=== PATIENT | female | born 1935 | race Caucasian/White ===

== ENCOUNTER 2020-09-22 07:54 | Outpatient (REF) | payer MEDICARE, OTHER, SELFPAY ==
[2020-09-22 11:15] LABS: MANUAL DIFF FLAG NO
[2020-09-22 11:27] LABS: Basophils Percent Auto 1.1 % (0-2); Eosinophils Absolute Auto 0.1 X10*3/uL (0.0-0.4); Eosinophils Percent Auto 3.7 % (0-4); Hematocrit 33.3 % (37-47); Hemoglobin 11.6 g/dl (12.0-16.0); Lymphocytes Absolute Auto 1.1 X10*3/uL (1.2-4.9); Lymphocytes Percent Auto 30.4 % (20-40); Mean Corpuscular HGB Conc 34.8 g/dl (31.0-35.0); Mean Corpuscular Hemoglobin 33.6 pg (27.0-33.0); Mean Corpuscular Volume 96.5 fL (80-98); Mean Platelet Volume 10.3 fL (9.4-12.3); Monocytes Absolute Auto 0.5 X10*3/uL (0.1-1.2); Monocytes Percent Auto 12.8 % (2-11); Neutrophils Absolute Auto 1.8 X10*3/uL (2.0-8.3); Platelet Count 236 X10*3/uL (160-400); Red Blood Count 3.45 X10*6/uL (4.20-5.50); Red Cell Distribution Width 12.4 % (11.0-16.0); White Blood Count 3.5 X10*3/uL (4.8-10.8)
[2020-09-22 11:54] LABS: Anion Gap 11 (12-20); Blood Urea Nitrogen 19 mg/dL (9-16); Carbon Dioxide 29 mmol/L (22-29); Chloride 101 mmol/L (96-108); Estimated Glomerular Filt Rate > 60; Potassium 4.3 mmol/l (3.3-5.1); Sodium 137 mmol/L (135-145)
== END 2020-09-22 07:55 | disposition home or self-care (01) ==
LOC: HO.HMGCLDS 07:54
PROVIDERS: PCP Family Medicine; Visit Provider Family Medicine
DX: D64.9 Anemia, unspecified (principal); I10 Essential (primary) hypertension
CPT/HCPCS: 36415; 80051; 82565; 84520; 85025

== ENCOUNTER 2021-06-17 07:56 | Outpatient (REF) | payer MEDICARE, OTHER, SELFPAY ==
[2021-06-17 11:09] LABS: MANUAL DIFF FLAG NO
[2021-06-17 11:16] LABS: Eosinophils Absolute Auto 0.2 X10*3/uL (0.0-0.4); Eosinophils Percent Auto 5.6 % (0-4); Hematocrit 33.2 % (37-47); Hemoglobin 11.4 g/dl (12.0-16.0); Imm Gran Abs Auto 0.01 X10*3/uL (0.00-0.03); Imm Gran Pct Auto 0.3 % (0.0-0.4); Lymphocytes Absolute Auto 1.2 X10*3/uL (1.2-4.9); Lymphocytes Percent Auto 31.5 % (20-40); Mean Corpuscular HGB Conc 34.3 g/dl (31.0-35.0); Mean Corpuscular Hemoglobin 32.8 pg (27.0-33.0); Mean Corpuscular Volume 95.4 fL (80-98); Mean Platelet Volume 10.1 fL (9.4-12.3); Monocytes Absolute Auto 0.4 X10*3/uL (0.1-1.2); Monocytes Percent Auto 10.7 % (2-11); Neutrophils Percent Auto 50.9 % (45-73); Platelet Count 221 X10*3/uL (160-400); Red Blood Count 3.48 X10*6/uL (4.20-5.50); Red Cell Distribution Width 12.7 % (11.0-16.0); White Blood Count 3.9 X10*3/uL (4.8-10.8)
[2021-06-17 11:40] LABS: Anion Gap 12 (12-20); Blood Urea Nitrogen 15 mg/dL (9-16); Carbon Dioxide 24 mmol/L (22-29); Chloride 103 mmol/L (96-108); Estimated Glomerular Filt Rate > 60; Potassium 4.4 mmol/L (3.3-5.1); Sodium 135 mmol/L (135-145)
== END 2021-06-17 07:57 | disposition home or self-care (01) ==
LOC: HO.HMGCLDS 07:56
PROVIDERS: PCP Family Medicine; Visit Provider Family Medicine
DX: I10 Essential (primary) hypertension (principal); D72.819 Decreased white blood cell count, unspecified
CPT/HCPCS: 36415; 80051; 82565; 84520; 85025

== ENCOUNTER 2021-11-06 08:30 | Outpatient (REF) | payer MEDICARE, OTHER, SELFPAY ==
[2021-11-06 10:19] LABS: MANUAL DIFF FLAG NO
[2021-11-06 10:31] LABS: Basophils Percent Auto 0.8 % (0-2); Eosinophils Absolute Auto 0.2 X10*3/uL (0.0-0.4); Eosinophils Percent Auto 4.1 % (0-4); Hematocrit 33.1 % (37.0-47.0); Hemoglobin 11.4 g/dl (12.0-16.0); Lymphocytes Absolute Auto 1.2 X10*3/uL (1.2-4.9); Lymphocytes Percent Auto 29.7 % (20-40); Mean Corpuscular HGB Conc 34.4 g/dl (31.0-35.0); Mean Corpuscular Hemoglobin 32.9 pg (27.0-33.0); Mean Corpuscular Volume 95.7 fL (80.0-98.0); Mean Platelet Volume 10.1 fL (9.4-12.3); Monocytes Absolute Auto 0.5 X10*3/uL (0.1-1.2); Monocytes Percent Auto 13.4 % (2-11); Platelet Count 231 X10*3/uL (160-400); Red Blood Count 3.46 X10*6/uL (4.20-5.50); Red Cell Distribution Width 12.4 % (11.0-16.0); White Blood Count 3.9 X10*3/uL (4.8-10.8)
[2021-11-06 10:40] LABS: Anion Gap 11 (12-20); Blood Urea Nitrogen 16 mg/dL (9-16); Carbon Dioxide 28 mmol/L (22-29); Chloride 101 mmol/L (96-108); Estimated Glomerular Filt Rate > 60; Potassium 4.2 mmol/L (3.3-5.1); Sodium 136 mmol/L (135-145)
== END 2021-11-06 08:31 | disposition home or self-care (01) ==
LOC: HO.10HDL 08:30
PROVIDERS: Visit Provider Family Medicine
DX: I10 Essential (primary) hypertension (principal); D64.9 Anemia, unspecified
CPT/HCPCS: 36415; 80051; 82565; 84520; 85025

== ENCOUNTER 2022-05-27 08:07 | Outpatient (REF) | payer MEDICARE, OTHER, SELFPAY ==
[2022-05-27 10:57] LABS: MANUAL DIFF FLAG NO
[2022-05-27 11:12] LABS: Eosinophils Absolute Auto 0.2 X10*3/uL (0.0-0.4); Eosinophils Percent Auto 4.6 % (0-4); Hematocrit 32.8 % (37.0-47.0); Hemoglobin 11.4 g/dl (12.0-16.0); Imm Gran Abs Auto 0.02 X10*3/uL (0.00-0.03); Imm Gran Pct Auto 0.5 % (0.0-0.4); Lymphocytes Absolute Auto 1.3 X10*3/uL (1.2-4.9); Lymphocytes Percent Auto 32.9 % (20-40); Mean Corpuscular HGB Conc 34.8 g/dl (31.0-35.0); Mean Corpuscular Hemoglobin 33.2 pg (27.0-33.0); Mean Corpuscular Volume 95.6 fL (80.0-98.0); Monocytes Absolute Auto 0.5 X10*3/uL (0.1-1.2); Monocytes Percent Auto 12.2 % (2-11); Neutrophils Absolute Auto 1.9 x10*3/uL (2.0-8.3); Neutrophils Percent Auto 48.8 % (45-73); Platelet Count 228 X10*3/uL (160-400); Red Blood Count 3.43 X10*6/uL (4.20-5.50); Red Cell Distribution Width 12.7 % (11.0-16.0); White Blood Count 3.9 X10*3/uL (4.8-10.8)
[2022-05-27 11:15] LABS: Anion Gap 14 (12-20); Blood Urea Nitrogen 18 mg/dL (9-16); Carbon Dioxide 27 mmol/L (22-29); Chloride 101 mmol/L (96-108); Estimated Glomerular Filt Rate 53; Sodium 138 mmol/L (135-145)
== END 2022-05-27 08:08 | disposition home or self-care (01) ==
LOC: HO.10HDL 08:07
PROVIDERS: Visit Provider Family Medicine
DX: I10 Essential (primary) hypertension (principal); D64.9 Anemia, unspecified
CPT/HCPCS: 36415; 80051; 82565; 84520; 85025

== ENCOUNTER 2022-12-10 08:16 | Outpatient (REF) | payer MEDICARE, OTHER, SELFPAY ==
[2022-12-10 12:41] LABS: Anion Gap 12 (12-20); Blood Urea Nitrogen 17 mg/dL (9-16); Carbon Dioxide 27 mmol/L (22-29); Chloride 101 mmol/L (96-108); Estimated Glomerular Filt Rate > 60; Potassium 4.3 mmol/L (3.3-5.1); Sodium 136 mmol/L (135-145)
== END 2022-12-10 08:17 | disposition home or self-care (01) ==
LOC: HO.HMGCLDS 08:16
PROVIDERS: Visit Provider Family Medicine
DX: I10 Essential (primary) hypertension (principal)
CPT/HCPCS: 36415; 80051; 82565; 84520

== ENCOUNTER 2023-08-25 09:14 | Outpatient (REF) | payer MEDICARE, OTHER, SELFPAY ==
[2023-08-25 11:07] LABS: MANUAL DIFF FLAG NO
[2023-08-25 11:10] LABS: Basophils Percent Auto 0.9 % (0-2); Eosinophils Absolute Auto 0.1 X10*3/uL (0.0-0.4); Eosinophils Percent Auto 1.6 % (0-4); Hematocrit 33.3 % (37.0-47.0); Hemoglobin 11.7 g/dl (12.0-16.0); Imm Gran Abs Auto 0.01 X10*3/uL (0.00-0.03); Imm Gran Pct Auto 0.2 % (0.0-0.4); Lymphocytes Absolute Auto 1.2 X10*3/uL (1.2-4.9); Lymphocytes Percent Auto 28.1 % (20-40); Mean Corpuscular HGB Conc 35.1 g/dl (31.0-35.0); Mean Corpuscular Hemoglobin 33.4 pg (27.0-33.0); Mean Corpuscular Volume 95.1 fL (80.0-98.0); Mean Platelet Volume 10.3 fL (9.4-12.3); Monocytes Absolute Auto 0.5 X10*3/uL (0.1-1.2); Monocytes Percent Auto 11.2 % (2-11); Neutrophils Absolute Auto 2.5 x10*3/uL (2.0-8.3); Platelet Count 252 X10*3/uL (160-400); Red Cell Distribution Width 12.3 % (11.0-16.0); White Blood Count 4.3 X10*3/uL (4.8-10.8)
[2023-08-25 11:33] LABS: Anion Gap 11 (12-20); Blood Urea Nitrogen 19 mg/dL (9-16); Carbon Dioxide 28 mmol/L (22-29); Chloride 99 mmol/L (96-108); Estimated Glomerular Filt Rate 57; Sodium 134 mmol/L (135-145)
== END 2023-08-25 09:15 | disposition home or self-care (01) ==
LOC: HO.HMGCLDS 09:14
PROVIDERS: PCP Family Medicine; Visit Provider Family Medicine
DX: I10 Essential (primary) hypertension (principal); D64.9 Anemia, unspecified
CPT/HCPCS: 36415; 80051; 82565; 84520; 85025

== ENCOUNTER 2023-12-06 12:48 | Outpatient (REF) | payer MEDICARE, OTHER, SELFPAY ==
--- NOTE | ~2023-12-06 | MM_ITS ---
EXAMINATION: BONE DENSITOMETRY CLINICAL INDICATION: History of osteoporosis. COMPARISON: This is the patient's baseline examination. TECHNIQUE: Using a [employer] DXA System (software version: 13.1) manufactured by [employer], dual-energy x-ray absorptiometry was performed of the lumbar spine and left hip. The images are of good technical quality. Summary results are attached. FINDINGS: LEFT FEMUR, NECK: BMD 0.629 g/cm2, Z-score -0.4, T-score -2.9, osteoporosis. LEFT FEMUR, TOTAL: BMD 0.613 g/cm2, Z-score -0.6, T-score -3.1, osteoporosis. AP SPINE L1-L4: BMD 0.850 g/cm2, Z-score -0.6, T-score -2.7, osteoporosis. IDENTIFIED RISK FACTORS: Menopause, dementia. HISTORY OF FRACTURE: None listed. MEDICATIONS: Vitamin D. MM/XR DEXA axial skeleton IMPRESSION: 1. DIAGNOSIS: Osteoporosis based on the lowest T-score value of -3.1 in the total femur applying World Health Organization criteria. 2. 10-YEAR FRACTURE RISK PREDICTION, FRAX: According to the guidelines, FRAX calculation should only be performed on patients in the osteopenia bone density category. Therefore, FRAX was not performed on this patient. 3. Treatment Recommendations: NOF guidelines recommend consideration for treatment in postmenopausal women and men age 50 and older presenting with the following: -A hip or vertebral (clinical or morphometric) fracture. -T-score less than or equal to -2.5 at the femoral neck or spine after appropriate evaluation to exclude secondary causes. -Low bone mass at the hip or spine and a 10-year fracture probability by FRAX of greater than or equal to 3% for hip fracture or greater than or equal to 20% for major osteoporotic fracture based on the [place] adapted WHO algorithm. 4. Other Recommendations: All treatment decisions require clinical judgment and consideration of individual patient factors, including patient preferences, comorbidities, previous drug use, risk factors not captured in the FRAX model (e.g. frailty, falls, vitamin D deficiency, increased bone turnover, interval significant decline in bone density) and possible under or overestimation of fracture risk by FRAX. Additional medical evaluation for secondary cause of low bone mineral density may be appropriate. FUTURE SCAN RECOMMENDATION: People with diagnosed cases of osteoporosis or at high risk for fracture should have regular bone mineral density tests. For patients eligible for Medicare, routine testing is allowed once every 2 years. The testing frequency can be increased to one year for patients who have rapidly progressing disease, those who are receiving or discontinuing medical therapy to restore bone mass, or have additional risk factors.
--- NOTE | ~2023-12-06 | US_ITS ---
EXAMINATION: US THYROID CLINICAL INFORMATION: History of osteoporosis, thyroid nodule. COMPARISON: None available. TECHNIQUE: Linear transducer richard-scale and color Doppler examination with attention to the region of the thyroid. FINDINGS: SIZE: Measurements of the thyroid lobes and nodules are given in sagittal, anteroposterior and transverse dimensions respectively. Right Thyroid Lobe: 5.7 x 1.3 x 1.8 cm, volume 6.97 mL. Parenchyma: The gland echotexture is homogeneous. Thyroid vascularity is normal. Left Thyroid Lobe: 4.6 x 1.1 x 1.8 cm, volume 4.8 mL. Parenchyma: The gland echotexture is homogeneous. Thyroid vascularity is normal. Isthmus: 0.3 cm in maximum AP dimension. No focal thyroid nodule is seen. NODES: No lymphadenopathy is seen in the tissue surrounding the thyroid gland. US/US thyroid IMPRESSION: No suspicious thyroid nodules identified. ACR TI-RADS RECOMMENDATION REFERENCE: Ultrasound-guided fine-needle aspiration, followup ultrasound, no further follow up. * TR1 (0 point) and TR2 (2 points): No FNA or follow up. * TR3 (3 points): FNA if more than or equal to 2.5 cm in maximum dimension, followup ultrasound in 1, 3 and 5 years if 1.5 to 2.4 cm in maximum dimension. * TR4 (4-6 points): FNA if more than or equal to 1.5 cm in maximum dimension, followup ultrasound in 1, 2, 3 and 5 years if 1 to 1.4 cm in maximum dimension. * TR5 (more than or equal to 7 points): FNA if more than or equal to 1 cm in maximum dimension, followup ultrasound every year for 5 years if 0.5 to 0.9 cm in maximum dimension. * TR3, TR4 or TR5 nodules that are below the size threshold for followup receive no follow up.
== END 2023-12-06 12:49 | disposition home or self-care (01) ==
LOC: HO.US 12:48
PROVIDERS: PCP Family Medicine; Visit Provider Family Medicine
DX: Z13.820 Encounter for screening for osteoporosis (principal); M81.0 Age-related osteoporosis without current pathological fracture; E04.1 Nontoxic single thyroid nodule; Z78.0 Asymptomatic menopausal state
CPT/HCPCS: 76536; 77080

== ENCOUNTER 2024-02-27 09:13 | Outpatient (REF) | payer MEDICARE, OTHER, SELFPAY ==
[2024-02-27 10:29] LABS: MANUAL DIFF FLAG NO
[2024-02-27 10:40] LABS: Basophils Percent Auto 0.8 % (0-2); Eosinophils Absolute Auto 0.3 X10*3/uL (0.0-0.4); Eosinophils Percent Auto 5.5 % (0-4); Hemoglobin 11.6 g/dl (12.0-16.0); Imm Gran Abs Auto 0.02 X10*3/uL (0.00-0.03); Imm Gran Pct Auto 0.4 % (0.0-0.4); Lymphocytes Absolute Auto 1.2 X10*3/uL (1.2-4.9); Lymphocytes Percent Auto 23.4 % (20-40); Mean Corpuscular HGB Conc 35.2 g/dl (31.0-35.0); Mean Corpuscular Hemoglobin 33.5 pg (27.0-33.0); Mean Corpuscular Volume 95.4 fL (80.0-98.0); Mean Platelet Volume 9.9 fL (9.4-12.3); Monocytes Absolute Auto 0.7 X10*3/uL (0.1-1.2); Monocytes Percent Auto 13.7 % (2-11); Neutrophils Absolute Auto 2.8 x10*3/uL (2.0-8.3); Neutrophils Percent Auto 56.2 % (45-73); Platelet Count 241 X10*3/uL (160-400); Red Blood Count 3.46 X10*6/uL (4.20-5.50); Red Cell Distribution Width 12.5 % (11.0-16.0)
[2024-02-27 11:17] LABS: Alanine Aminotransferase 23 U/L (0-31); Anion Gap 14 (12-20); Aspartate Amino Transferase 22 U/L (5-31); Blood Urea Nitrogen 18 mg/dL (9-16); Carbon Dioxide 26 mmol/L (22-29); Chloride 101 mmol/L (96-108); Estimated Glomerular Filt Rate 59; Potassium 4.1 mmol/L (3.3-5.1); Sodium 137 mmol/L (135-145)
== END 2024-02-27 09:14 | disposition home or self-care (01) ==
LOC: HO.HMGCLDS 09:13
PROVIDERS: PCP Family Medicine; Visit Provider Family Medicine
DX: I10 Essential (primary) hypertension (principal); D64.9 Anemia, unspecified; E78.00 Pure hypercholesterolemia, unspecified
CPT/HCPCS: 36415; 80051; 82550; 82565; 84450; 84460; 84520; 85025

== ENCOUNTER 2024-12-07 08:10 | Outpatient (REF) | payer MEDICARE, OTHER, SELFPAY ==
--- OUTSIDE RECORDS SUMMARY | 2024-12-07 08:23 | XMS_ITS ---
Author Organization Lalito Becerra III, MD Address [address] [place] [address] [place] [address] Care Team Providers Care Senior Insight Manager Name Role Phone Yoandy PETERSON, Todd Primary Care Provider Unavailab Lalito Simpson Unavailable [phone] Allergies Allergen (clinical drug ingredient) Drug/Non Drug Allergy documented on EMR Reaction Allergy Type Onset Date Status No Known Drug Allergy Unknown Drug Allergy Active REASON FOR VISIT History of breast cancer, Osteoporosis, Neutropenia Medications Medication SIG (Take, Route, Frequency, Duration) Notes Start Date End Date Status Vitamin D-3 5000 UNIT as directed Orally Once a day Active Centrum 1000 MG as directed Orally O nce a day Active Bisoprolol-hydroCHLOROthia zide 2.5-6.25 MG [...] Tobacco Non-User Aggressive non-smoker Vital Signs Temperature 98.0 degrees Fahrenheit 11/18/19 24 Blood pressure systolic 136 mm Hg 11/18/19 24 Blood pressure diastolic 60 mm Hg 024 Heart Rate 62 /min 11/18/2023 Height 61 in 11/18/2023 Weight 136 lbs 11/18/2023 BMI 25.69 kg/m2 11/18/2023 Encounters Encounter Location Date Provider Diagnosis Lalito Becerra III, MD [address] [place] [address] [address] [place] [address] 11/18/2023 Lalito Becerra Screening mammogram for breast cancer Z12.31 ; Essential hypertension I10 ; Neutropenia, unspecified type D70.9 ; Sinus bradycardia R00.1 ; Malignant neoplasm of lower-outer quadrant of left female breast C50.512 ; Osteoporosis M81.0 and Overweight E66.3 Assessments Encounter Date Diagnosis (ICD Code) Assessment Notes Treatment Notes Treatment Clinical Notes 11/18/2023 Screening mammogram for breast cancer (ICD-10 - Z12.31) Her annual screening mammogram has been ordered. 11/18/2023 Essential hypertension (ICD-10 - I10) Her blood pressure is 130/70. No change in her regimen as necessary. I recommended weight reduction and sodium restriction. 11/18/2023 Neutropenia, unspecified type (ICD-10 - D70.9) Comprehensive blood work including a CBC was ordered today. 11/18/2023 Sinus bradycardia (ICD-10 - R00.1) Her pulse today was normal at 62. No change in her regimen as needed. 11/18/2023 Malignant neoplasm of lower-outer quadrant of left female breast (ICD-10 - C50.512) There is no sign of recurrent disease on today's examination. There was no sign of a new primary. Surveillance will continue. 11/18/2023 Osteoporosis (ICD-10 - M81.0) She was continued on current therapy. She is taking calcium and vitamin D. Her last bone density in my record was in 2017. A repeat is indicated. She has known osteoporosis and may be a candidate for alendronate. She will be referred back to primary care for this issue. 11/18/2023 Overweight (ICD-10 - E66.3) She is very slightly overweight. I recommended stabilizing her weight is a current level. We discussed diet and nutrition. Plan Of Treatment Medication Medication Name Sig Start Date Stop Date Notes Vitamin D-3 5000 UNIT as directed Orally Once a day Centrum 1000 MG as directed Orally Once a day Donepezil HCl 10 MG 1 tablet at bedtime Orally Once a day amLODIPine Besylate 2.5 MG 1 tablet Orally Once a day Aspir-81 81 MG 1 tablet Orally Once a day Next Appt Details Follow Up: 6 Months, Reason: OV Provider Name:Lalito Becerra, 05/20/2025 11:00:00 AM, [address] [place] [address] [address], [place], [address], Progress Notes * Kimber GODOYOB:1935 (88 yo F)Acc No.[id number]:11/18/2023 Progress Notes Patient:?Jenny Godoy Provider:?Lalito Becerra MD :1935???Age:88 Y???Sex:Female D ate:11/18/2023 Address:[address] [place], [place] [id number] Pcp:Todd Pitt MD Subjective: * Chief Complaints: * ???History of breast cancerO steoporosisNeutropenia * HPI: ???COVID-19 Screening:?Questions?Have you experienced fever, chills, cough, sore throat, shortness of breath, difficulty breathing, muscle aches, loss of taste or smell??No ?Have you been exposed to the virus within the last 10 days??No ?Have you travelled internationally in the last 10 days??No ?Have you been exposed to COVID-19 in the past??No ? She returns for a sccheduled visit for surveillance after diagnosis of breast cancer. Her primary care physician has ordered a bone scan and some thyroid studies. The patient is unclear on why. Her wweight has been stable and she feels well. Her examination today showed no sign of recurrent breast cancer or of a new primary. Observation was continued. His chest pain or shortness of breath. Examination of the neck was unremarkable. * ROS:?General/Constitutional:?pain?only normal aches and pains.?Chills?denies.?Fatigue?admits.?Fever?denies.?ENT:?Decreased hearing?mild.?Respiratory:?Cough?denies.?Cardiovascular:?Chest pain with exertion?denies.?Dyspnea on exertion?denies.?Shortness of breath?denies.?Gastrointestinal:?Constipation?occasional.?Decreased appetite?denies.?Diarrhea?denies.?Heartburn?denies.?Nausea?denies.?Rectal bleeding?denies.?Vomiting?denies.?Hematology:?bruising?denies.?petechiae?denies.?Swollen glands?none have been noted.?Genitourinary:?Frequent urination?denies.?Musculoskeletal:?Muscle aches?denies.?Painful joints?denies.?Sciatica?denies.?Weakness?denies.?Skin:?Itching?denies.?Rash?denies.?Skin lesion(s)?denies.?Neurologic:?Difficulty speaking?denies.?Dizziness?denies.?Headache?denies.?Low back pain?denies.?Psychiatric:?Depressed mood?denies.? * Medical History:? 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 5 son(s) . .? One of her sons of spina bifida. Her sister has a history of breast cancer. The patient has never had genomic testing. * Social History:?Tobacco Use:?Tobacco Use/Smoking?Patient is a?nonsmoker ?Additional Findings: Tobacco Non-User?Aggressive non-smoker ???She has been to her Lynn for 60 years. They have 4 living children. One child of hydrocephalus and spina bifida. * Medications:?TakingBisoprolo l-hydroCHLOROthiazide 2.5-6.25 MG Tablet 1 tablet Orally Once a dayAspir-81 81 MG Tablet Delayed Release 1 tablet Orally Once a dayCentrum 1000 MG Tablet as directed Orally Once a dayVitamin D-3 5000 UNIT Tablet as directed Orally Once a dayamLODIPine Besylate 2.5 MG Tablet 1 tablet Orally Once a dayDonepezil HCl 10 MG Tablet 1 tablet at bedtime Orally Once a dayTaking Bisoprolol-hydroCHLOROthiazide 2.5-6.25 MG Tablet 1 tablet Orally Once a dayTaking Aspir-81 81 MG Tablet Delayed Release 1 tablet Orally Once a dayTaking Centrum 1000 MG Tablet as directed Orally Once a dayTaking Vitamin D-3 5000 UNIT Tablet as directed Orally Once a dayTaking amLODIPine Besylate 2.5 MG Tablet 1 tablet Orally Once a dayTaking Donepezil HCl 10 MG Tablet 1 tablet at bedtime Orally Once a dayDiscontinuedBisoprolol-hydroCHLOROthiazide 2.5-6.25 MG Tablet 1 tablet Orally Once a dayMedication List reviewed and reconciled with the patientDiscontinued Bisoprolol-hydroCHLOROthiazide 2.5-6.25 MG Tablet 1 tablet Orally Once a dayMedication List reviewed and reconciled with the patient * Allergies:?No Known Drug All ergyno[Allergies Verified] Objective: * Vitals:?Ht: 61, Wt:136, BMI: 25.69, BP:136/60, HR:62, Temp:98.0, Wt-k.69. * Examination: ???General Examination: ?GENERAL APPEARANCE:?pleasant, well nourished, well developed, in no acute distress, calm and relaxed , overweight , woman.?HEAD:?atraumatic, normocephalic.?EYES:?eomi, perrla, anicteric, conjugate.?EARS:?normal.?NOSE:?septum intact.?ORAL CAVITY:?normal, unremarkable.?NECK/THYROID:?no jugular venous distention, no carotid bruit, thyroid normal.?LYMPH NODES:?no enlarged lymph nodes,spleen normal.?SKIN:?no suspicious lesions, anicteric.?HEART:?no clicks, gallops, murmurs, or rubs, regular rhythm, S1, S2 normal, no s3, or vascular bruits.?LUNGS:?clear to auscultation .?BREASTS:??no masses palpable bilaterally, Right breast unremarkable, left partial mastectomy site well-healed.?ABDOMEN:?bowel sounds normal, no ascites, no organomegaly, no mass , overweight.?RECTAL EXAM:?not examined.?MUSCULOSKELETAL:?extremities unremarkable, no clubbing, cyanosis or edema.?PERIPHERAL PULSES:?normal.?NEUROLOGIC:?alert and oriented, cranial nerves 2-12 grossly intact, deep tendon reflexes 2+ symmetrical, motor strength normal upper and lower extremities, sensory exam intact.?PSYCH:?alert, oriented with defects in memory.? Assessment: * Assessment: 1.?Screening mammogram for b reast cancer - Z12.31 (Primary), Her annual screening mammogram has been ordered.?2.?Essential hypertension - I10, Her blood pressure is 130/70. No change in her regimen as necessary. I recommended weight reduction and sodium restriction.?3.?Neutropenia, unspecified type - D70.9, Comprehensive blood work including a CBC was ordered today.?4.?Sinus bradycardia - R00.1, Her pulse today was normal at 62. No change in her regimen as needed.?5.?Malignant neoplasm of lower-outer quadrant of left female breast - C50.512, There is no sign of recurrent disease on today's examination. There was no sign of a new primary. Surveillance will continue.?6.?Osteoporosis - M81.0, She was continued on current therapy. She is taking calcium and vitamin D. Her last bone density in my record was in 2017. A repeat is indicated. She has known osteoporosis and may be a candidate for alendronate. She will be referred back to primary care for this issue.?7.?Overweight - E66.3, She is very slightly overweight. I recommended stabilizing her weight is a current level. We discussed diet and nutrition.? Plan: * Treatment: * Procedure Codes:? * Preventive Medicine:? ??Counseling:?Care goal follow-up plan:?Counseling for abnormal BMI given?Yes ?Above Normal BMI Follow-up?Dietary management education, guidance, and counseling, Dietary needs education, Exercise promotion: strength training, Exercise promotion: stretching, Feeding regime, Giving encouragement to exercise, Lifestyle education regarding diet, Nutrition / feeding management, Nutrition therapy, Prescribed activity/exercise education, Prescribed diet education, Prescribed dietary intake, Special diet education, Weight monitoring , Intervention, Order not done: Medical or Other reason not done * Follow Up:?6 Months (Reason: OV) * Images: * Sign off status: Completed true * Provider:?Lalito Becerra MD Date:?06/2024 Generated for Yovani roman/Shirley/Shermanitting on:?12/07/2024 08:23 AM EST History and Physical Notes * HPI (History of Present Illness) Category Sub-Category Detail Notes COVID-19 Screening Questions Have you had any new onset fever, chills, cough, congestion, sore throat, shortness of breath, muscle aches?: No Have you been exposed to the virus withi n the last 10 days?: No Have you travelled internationally in e last 10 days?: No Have you been exposed to COVID-19 in the past?: No Examination Category Sub-Category Detail Notes General Examination GENERAL APPEARANCE: pleasant , well nourished, well developed, in no acute distress, calm and relaxed , overweight , woman HEAD: atraumatic, normocep halic EYES: eomi, [...] normal BREASTS: no masses palpable b ilaterally, Right breast unremarkable, left partial mastectomy site well-healed MUSCULOSKELETAL: extremities unremark able, no clubbing, cyanosis or edema LYMPH NODES: no enlarged lymph no amos,spleen normal RECTAL EXAM: not examined PSYCH: alert, oriented with defects in memory ORAL CAVITY: normal, unremarkable
--- OUTSIDE RECORDS SUMMARY | 2024-12-07 08:23 | XMS_ITS ---
Author Organization Lalito Becerra III, MD Address [address] [place] [address] [place] [address] Care Team Providers Care Senior Software Architect Name Role Phone Yoandy PETERSON, Todd Primary Care Provider Unavailab Lalito Simpson Unavailable [phone] Allergies Allergen (clinical drug ingredient) Drug/Non Drug [...] Date Provider Diagnosis Lalito Becerra III, MD [address] [place] [address] [place] [address] 05/18/2024 Lalito Becerra Screening mammogram for breast [...] OV Provider Name:Lalito Becerra, 05/20/2025 11:00:00 AM, [address] [place] [address] [place] TAVAREZ, KOLBY KUMAR, [address], Progress Notes * Kimber GODOYOB:1935 (88 yo F)Acc No.[id number]:05/18/2024 Progress Notes Patient:?Jenny Godoy Provider:?Lalito Becerra MD :1935???Age:88 Y???Sex:Female D ate:05/18/2024 Address:[address] [place] [address] [facility] Pcp:Todd Pitt MD Subjective: * Chief Complaints: * ???History of left breast ca ncerOsteoporosisHypertension * HPI: ???COVID-19 Screening:? She returns to the office for ongoing [...] surgery followed by radiation followed by chemotherapy. ?Questions?Have you experienced fever, chills, cough, sore throat, shortness of breath, difficulty breathing, muscle aches, loss of taste or smell??No ?Have you been exposed to the virus within the last 10 days??No ?Have you travelled internationally in the last 10 days??No ?Have you been exposed to COVID-19 in the past??No * ROS:?General/Constitutional:?pain?only normal aches and pains.?Chills?denies.?Fatigue?admits.?Fever?denies.?ENT:?Decreased hearing?in both ears.?Respiratory:?Cough?denies.?Cardiovascular:?Chest pain with exertion?denies.?Dyspnea on exertion?denies.?Shortness of breath?denies.?Gastrointestinal:?Constipation?occasional.?Decreased appetite?denies.?Diarrhea?denies.?Heartburn?denies.?Nausea?denies.?Rectal bleeding?denies.?Vomiting?denies.?Hematology:?bruising?denies.?petechiae?denies.?Swollen glands?none have been noted.?Genitourinary:?Frequent urination?at night.?Musculoskeletal:?Muscle aches?denies.?Painful joints?denies.?Sciatica?denies.?Weakness?that is generalized.?Skin:?Itching?denies.?Rash?denies.?Skin lesion(s)?denies.?Neurologic:?Difficulty speaking?denies.?Dizziness?denies.?Headache?denies.?Low back pain?denies.?Psychiatric:?Depressed mood?denies.? * Medical [...] child of hydrocephalus and spina bifida. * Medications:?TakingAspir-81 81 MG Tablet Delayed Release 1 tablet [...] All ergyno[Allergies Verified] Objective: * Vitals:?Ht: 61, Wt:135, BMI: 25.51, BP:129/55, HR:52, Temp:97.3, Wt-k.23. * Examination: ???General Examination: ?GENERAL APPEARANCE:?pleasant, well nourished, well developed, in no acute distress, calm and relaxed , overweight , elderly woman.?HEAD:?atraumatic, normocephalic.?EYES:?eomi, perrla, anicteric, conjugate.?EARS:?normal.?NOSE:?septum intact.?ORAL CAVITY:?normal, unremarkable.?NECK/THYROID:?no jugular venous distention, no carotid bruit, thyroid normal.?LYMPH NODES:?no enlarged lymph nodes,spleen normal.?SKIN:?no suspicious lesions, anicteric.?HEART:?no clicks, gallops, murmurs, or rubs, regular rhythm, S1, S2 normal, no s3, or vascular bruits.?LUNGS:?clear to auscultation .?BREASTS:?no masses palpable bilaterally , no dimpling , no discharge , no drainage , nontender , Left breast smaller,?old surgical scars, radiation changes left breast well-healed.?ABDOMEN:?bowel sounds normal, no ascites, no organomegaly, no mass , overweight.?RECTAL EXAM:?not examined.?MUSCULOSKELETAL:?extremities unremarkable, no clubbing, cyanosis or edema.?PERIPHERAL PULSES:?normal.?NEUROLOGIC:?alert and oriented, cranial nerves 2-12 grossly intact, deep tendon reflexes 2+ symmetrical, motor strength normal upper and lower extremities, sensory exam intact.?PSYCH:?alert, oriented.? Assessment: * Assessment: 1.?Screening mammogram for b reast cancer - Z12.31 (Primary), Her annual screening mammogram has been ordered.?2.?Essential hypertension - I10, Her blood pressure is 129/55. No change in her regimen as necessary. I recommended weight reduction and sodium restriction.?3.?Osteoporosis - M81.0, She was continued on current therapy. She is taking calcium and vitamin D. Her last bone density in my record was in 2017. A repeat is indicated. She has known osteoporosis and may be a candidate for alendronate. She will be referred back to primary care for this issue.?4. 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 There was no sign of a new primary. Surveillance will continue.? Plan: * Treatment: * Procedure Codes:? * Preventive Medicine:? ??Counseling:?Care goal follow-up plan:?Counseling for abnormal BMI given?Yes ?Above Normal BMI Follow-up?Dietary management education, guidance, and counseling * Follow Up:?6 Months (Reason: OV) * Images: * Sign off status: Completed true * Provider:?Lalito Becerra MD Date:?06/2024 Generated for Yovani roman/Shirley/eTransmitting on:?12/07/2024 08:22 AM EST History and Physical Notes * HPI (History of Present Illness) Category Sub-Category Detail Notes COVID-19 Screening Questions Have you had any new onset fever, chills, cough, congestion, sore throat, shortness of breath, muscle aches?: No Have you been exposed to the virus withi n the last 10 days?: No Have you travelled internationally in [facility] last 10 days?: No Have you been [...]
--- OUTSIDE RECORDS SUMMARY | 2024-12-07 08:23 | XMS_ITS ---
Author Organization Lalito Becerra III, MD Address [address] [place] [address] [place] [address] Care Team Providers Care Core Feeder Name Role Phone Yoandy [place], Todd Primary Care Provider Unavailab Lalito Simpson Unavailable [phone] Allergies Allergen (clinical drug ingredient) Drug/Non Drug [...] Date Provider Diagnosis Lalito Becerra III, MD [address] [place] [address] [place] [address] 11/20/2024 Lalito Becerra Screening mammogram for breast [...] Reason: ov no tests Provider Name:Lalito Becerra, 05/20/2025 11:00:00 AM, [address] [place] [address] [place] TAVAREZ, [place], [address], Progress Notes * Kimber GODOYOB:1935 (89 yo F)Acc No.[id number]:11/20/2024 Progress Notes Patient:?Jenny GODOY Provider:?Lalito Becerra MD :1935???Age:89 Y???Sex:Female D ate:11/20/2024 Address:[address] [place], [place] [id number] Pcp:Todd Pitt MD Subjective: * Chief Complaints: * ???History of carcinoma of t he left breastHypertensionNeutropeniaOsteoporosis * HPI: ???COVID-19 Screening:?She returns to the office twice a year for monitoring of a history of breast cancer.? She is feeling healthy and well. She denied having any new symptoms or problems.? She is conducting breast self-examination reguularly.? She has no new findings.? Her examination today was unremarkable. ?Questions?Have you had any new onset fever, chills, cough, congestion, sore throat, shortness of breath, muscle aches??No * ROS:?General/Constitutional:?pain?only normal aches and pains.?Chills?denies.?Fatigue?admits.?Fever?denies.?ENT:?Decreased hearing?denies.?Respiratory:?Cough?denies.?Cardiovascular:?Chest pain with exertion?denies.?Dyspnea on exertion?denies.?Shortness of breath?denies.?Gastrointestinal:?Constipation?occasional.?Decreased appetite?denies.?Diarrhea?denies.?Heartburn?denies.?Nausea?denies.?Rectal bleeding?denies.?Vomiting?denies.?Hematology:?bruising?denies.?petechiae?denies.?Swollen glands?none have been noted.?Genitourinary:?Frequent urination?at night.?Musculoskeletal:?Muscle aches?denies.?Painful joints?denies.?Sciatica?denies.?Weakness?denies.?Skin:?Itching?denies.?Rash?denies.?Skin lesion(s)?denies.?Neurologic:?Difficulty speaking?denies.?Dizziness?denies.?Headache?denies.?Low back pain?denies.?Psychiatric:?Depressed mood?denies.? [...] tablet at bedtime Orally Once a day Bisoprolol-hydroCHLOROthiazide 2.5-6.25 MG Tablet 1 tablet Orally [...] All ergyno[Allergies Verified] Objective: * Vitals:?Ht: 61, Wt:138, BMI: 26.07, BP:137/61, HR:59, Temp:97.0, Wt-k.6. * Examination: ???General Examination: ?GENERAL APPEARANCE:?pleasant, well nourished, well developed, in no acute distress, calm and relaxed, overweight, elderly woman, overweight, elderly woman.?HEAD:?atraumatic, normocephalic.?EYES:?eomi, perrla, anicteric, conjugate.?EARS:?normal.?NOSE:?septum intact.?ORAL CAVITY:?normal, unremarkable.?NECK/THYROID:?no jugular venous distention, no carotid bruit, thyroid normal.?LYMPH NODES:?no enlarged lymph nodes,spleen normal.?SKIN:?no suspicious lesions, anicteric.?HEART:?no clicks, gallops, murmurs, or rubs, regular rhythm, S1, S2 normal, no s3, or vascular bruits.?LUNGS:?clear to auscultation .?BREASTS:??no masses palpable bilaterally, Left lumpectomy scar well- healed, radiation changes, right breast unremarkable.?ABDOMEN:?bowel sounds normal, no ascites, no organomegaly, no mass, overweight.?RECTAL EXAM:?not examined.?MUSCULOSKELETAL:?extremities unremarkable, no clubbing, cyanosis or edema.?PERIPHERAL PULSES:?normal.?NEUROLOGIC:?alert and oriented, cranial nerves 2-12 grossly intact, deep tendon reflexes 2+ symmetrical, motor strength normal upper and lower extremities, sensory exam intact.?PSYCH:?alert, oriented.? Assessment: * Assessment: 1.?Malignant neoplasm of low er-outer quadrant of left female breast - C50.512 (Primary)???Notes :There is no sign of recurrent disease on today's examination. There was no sign of a new primary. Surveillance will continue.???2.?Screening mammogram for breast cancer - Z12.31???Notes :Her annual screening mammogram has been ordered.???3.?Essential hypertension - I10???Notes :Her blood pressure is stable. No change in her regimen as necessary. I recommended weight reduction and sodium restriction.???4.?Neutropenia, unspecified type - D70.9???Notes :Comprehensive blood work including a CBC was ordered today.???5.?Sinus bradycardia - R00.1???Notes :Her pulse today was normal at 62. No change in her regimen as needed.???6.?Osteoporosis - M81.0???Notes :She was continued on current therapy. She is taking calcium and vitamin D. Her last bone density in my record was in 2017. A repeat is indicated. She has known osteoporosis and may be a candidate for alendronate. She will be referred back to primary care for this issue.??? Plan: * Treatment: * Procedure Codes:? * Preventive Medicine:? ??Counseling:?Care goal follow-up plan:?Counseling for abnormal BMI given?Yes ?Above Normal BMI Follow-up?Dietary management education, guidance, and counseling * Follow Up:?6 Months (Reason: ov no tests) * Images: * Sign off status: Completed true * Provider:?Lalito Becerra MD Date:?11/10 Generated for Yovani roman/Shirley/Néstor on:?12/07/2024 08:22 AM EST History and Physical [...]
--- OUTSIDE RECORDS SUMMARY | 2024-12-07 08:23 | XMS_ITS | Patient Health Record ---
Author Organization Lalito Becerra III, MD Address [address] [place] [address] [place] [address] Care Team Providers Care Laboratory Phlebotomist Name Role Phone Yoandy PETERSON, Todd Primary Care Provider UnavailLalito [facility] [phone] Allergies Allergen (clinical drug ingredient) Drug/Non Drug Allergy documented on EMR Reaction Allergy Type Onset Date Status No Known Drug Allergy Unknown Drug Allergy Active Reason For Referral No Information Medications Medication SIG (Take, Route, Frequency, Duration) [...] nonsmoker Additional Findings: Tobacco Non-User Aggressive non-smoker Alcohol Screen Question Answer Notes Did you have a drink contain ing alcohol in the past year? Yes How often did you have a dri nk containing alcohol in the past year? 4 or more times a week (4 points) How many drinks did you have on a typical day when you were drinking in the past year? 1 or 2 drinks (0 point) How often did you have 6 or more drinks on one occasion in the past year? Never (0 point) Points 4 Interpretation Positive Problems Problem Type SNOMED Code ICD Code Onset Dates Problem Status W/U Status Risk Notes Problem 026582014 Anemia (D64.9) Active confirmed I have ordered comprehensive blood work to be done before her next visit. Problem 021616337 Malignant neopla sm of lower-outer quadrant of left female breast (C50.512) Active confirmed There is no sign of recurrent disease on today's examination. There was no sign of a new primary. Surveillance will continue. Problem 76116046 Essential hypertension (I10) Active confirmed Her blood pressure is stable. No change in her regimen as necessary. I recommended weight reduction and sodium restriction. Problem 32018115 Sinus bradycardi a (R00.1) Active confirmed Her pulse today was normal at 62. No change in her regimen as needed. Problem 61214576 Osteoporosis (M81.0) Active confirmed She was continued on current therapy. She is taking calcium and vitamin D. Her last bone density in my record was in 2017. A repeat is indicated. She has known osteoporosis and may be a candidate for alendronate. She will be referred back to primary care for this issue. Problem 849564636 Hyposmolality and/or hyponatremia (E87.1) Active confirmed Problem 156525957 Cataract (H26.9) Active confirmed Problem 706132519 Neutropenia, unspecified type (D70.9) Active confirmed Comprehensive blood work including a CBC was ordered today. 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 She has had no syncope. Agitation will continue. Vital Signs Heart Rate 59 /min 11/20/2024 Temperature 97.0 degrees Fahrenheit 11/20/2024 Blood pressure diastolic 61 mm Hg 11/20/2024 Height 61 in 11/20/2024 Blood pressure systolic 137 mm Hg 11/20/2024 Weight 138 lbs 11/20/2024 BMI 26.07 kg/m2 11/20/2024 Encounters Encounter Location Date Provider Diagnosis Lalito Becerra III, MD [address] [place] [address] [place] [address] 05/18/2024 Lalito Becerra Screening mammogram for breast cancer Z12.31 ; Essential hypertension I10 ; Osteoporosis M81.0 and Malignant neoplasm of lower-outer quadrant of left female breast C50.512 Lalito Becerra III, MD [address] [place] [address] [place] [address] 11/20/2024 Lalito Becerra Screening mammogram for breast cancer Z12.31 ; Malignant neoplasm of lower-outer quadrant of left female breast C50.512 ; Essential hypertension I10 ; Neutropenia, unspecified type D70.9 ; Sinus bradycardia R00.1 and Osteoporosis M81.0 Assessments Encounter Date Diagnosis (ICD Code) Assessment Notes Treatment Notes Treatment Clinical Notes 05/18/2024 Essential hypertension (ICD-10 - I10) Her blood pressure is 129/55. No change in her regimen as necessary. I recommended weight reduction and sodium restriction. 05/18/2024 Screening mammogram for breast cancer (ICD-10 - Z12.31) Her annual screening mammogram has been ordered. 11/20/2024 Malignant neoplasm of lower-outer quadrant of left female breast (ICD-10 - C50.512) There is no sign of recurrent disease on today's examination. There was no sign of a new primary. Surveillance will continue. 11/20/2024 Screening mammogram for breast cancer (ICD-10 - Z12.31) Her annual screening mammogram has been ordered. 05/18/2024 Osteoporosis (ICD-10 - M81.0) She was continued on current therapy. She is taking calcium and vitamin D. Her last bone density in my record was in 2017. A repeat is indicated. She has known osteoporosis and may be a candidate for alendronate. She will be referred back to primary care for this issue. 11/20/2024 Essential hypertension (ICD-10 - I10) Her blood pressure is stable. No change in her regimen as necessary. I recommended weight reduction and sodium restriction. 05/18/2024 Malignant neoplasm of lower-outer quadrant of left female breast (ICD-10 - C50.512) There is no sign of recurrent disease on today's examination. There was no sign of a new primary. Surveillance will continue. 11/20/2024 Neutropenia, unspecified type (ICD-10 - D70.9) [...] care for this issue. Plan Of Treatment Pending Test Test Name Order Date MAMMOGRAM DIGITAL BILATERAL DIAGNO 09/08 MAMMOGRAM DIGITAL BILATERAL SCREEN 07/29 MAMMOGRAM DIGITAL BILATERAL SCREEN 10/25 MAMMOGRAM DIGITAL BILATERAL SCREEN 05/08 MAMMOGRAM DIGITAL BILATERAL SCREEN 05/13 Next Appt Details Provider Name:Lalito Becerra, 05/20/2025 11:00:00 AM, [address] [place] [address] DR [place] Marcel, [place], [address], Insurance Providers Payer Name Payer Address Payer Phone Subscriber Number Group Number Insured Name Patient Relationship to Insured Coverage Start Date Coverage End Date MEDICARE NGS [address] [place] [phone] [id number] Jenny Godoy Self - patient is the insured [facility] [employer] [address] [place] [phone] [id number] Jenny Godoy Self - patient is the insured Medical (General) History Surgical History Surgery Date(Month/Year) 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
[2024-12-07 10:24] LABS: MANUAL DIFF FLAG NO
[2024-12-07 10:32] LABS: Basophils Percent Auto 0.6 % (0-2); Eosinophils Absolute Auto 0.2 X10*3/uL (0.0-0.4); Eosinophils Percent Auto 3.6 % (0-4); Hematocrit 33.7 % (37.0-47.0); Imm Gran Abs Auto 0.02 X10*3/uL (0.00-0.03); Imm Gran Pct Auto 0.4 % (0.0-0.4); Lymphocytes Absolute Auto 1.4 X10*3/uL (1.2-4.9); Lymphocytes Percent Auto 29.5 % (20-40); Mean Corpuscular HGB Conc 35.6 g/dl (31.0-35.0); Mean Corpuscular Volume 95.5 fL (80.0-98.0); Mean Platelet Volume 10.1 fL (9.4-12.3); Monocytes Absolute Auto 0.6 X10*3/uL (0.1-1.2); Monocytes Percent Auto 12.4 % (2-11); Neutrophils Absolute Auto 2.5 x10*3/uL (2.0-8.3); Neutrophils Percent Auto 53.5 % (45-73); Platelet Count 251 X10*3/uL (160-400); Red Blood Count 3.53 X10*6/uL (4.20-5.50); Red Cell Distribution Width 12.3 % (11.0-16.0); White Blood Count 4.7 X10*3/uL (4.8-10.8)
[2024-12-07 10:39] LABS: Anion Gap 10 (12-20); Blood Urea Nitrogen 15 mg/dL (9-16); Calcium 10.2 mg/dL (8.4-10.2); Carbon Dioxide 27 mmol/L (22-29); Chloride 102 mmol/L (96-108); Estimated Glomerular Filt Rate > 60; Glucose Random 85 mg/dL (60-115); Potassium 3.8 mmol/L (3.3-5.1); Sodium 135 mmol/L (135-145)
== END 2024-12-07 08:11 | disposition home or self-care (01) ==
LOC: HO.HMGCLDS 08:10
PROVIDERS: PCP Family Medicine; Referring Provider Internal Medicine Medical Oncology; Visit Provider Family Medicine
DX: I10 Essential (primary) hypertension (principal); R53.83 Other fatigue; I25.10 Atherosclerotic heart disease of native coronary artery without angina pectoris
CPT/HCPCS: 36415; 80048; 85025

== ENCOUNTER 2025-06-19 10:28 | Outpatient (AMB) | payer MEDICARE, OTHER, SELFPAY ==
--- OUTSIDE RECORDS SUMMARY | 2024-05-18 06:30 | XMS_ITS ---
Author Organization Lalito Becerra III, MD Address [address] [place] [address] [place] [address] Care Team Providers Care Nutrition Manager Name Role Phone Lalito Becerra [phone] Allergies Allergen (clinical drug ingredient) Drug/Non Drug Allergy documented on EMR Reaction Allergy Type Onset Date Status No Known Drug Allergy Unknown Drug Allergy Active REASON FOR VISIT History of left breast cancer, Osteoporosis, Hypertension Medications Medication SIG (Take, Route, Frequency, Duration) Notes Start Date End Date Status Centrum 1000 MG as directed Orally O nce a day Active Vitamin D-3 5000 UNIT as directed Orally Once a day Active amLODIPine Besylate 2.5 MG 1 tablet Orally Once a day Active Donepezil HCl 10 MG 1 tablet at bedtime Orally Once a day Active Bisoprolol-hydroCHLOROthia zide 2.5-6.25 MG 1 tablet Orally Once a day Active Aspir-81 81 MG 1 tablet Orally Once a day Active Social History Tobacco Use: Social History Observation Description Date Details (start date - stop date) Never Smoker NA - NA Sex Assigned At : Social History Observation Description Sex Assigned At Female Tobacco Use/Smoking Question Answer Notes Patient is a nonsmoker Additional Findings: Tobacco Non-User Aggressive non-smoker Vital Signs Temperature 97.3 degrees Fahrenheit 05/18/20 24 Blood pressure systolic 129 mm Hg 05/18/20 24 Blood pressure diastolic 55 mm Hg 024 Heart Rate 52 /min 05/18/2024 Height 61 in 05/18/2024 Weight 135 lbs 05/18/2024 BMI 25.51 kg/m2 05/18/2024 Encounters Encounter Location Date Provider Diagnosis Lalito Becerra III, MD [address] [place] [address] [place] [address] 05/18/2024 Lalito Becerra Screening mammogram for breast cancer Z12.31 ; Essential hypertension I10 ; Osteoporosis M81.0 and Malignant neoplasm of lower-outer quadrant of left female breast C50.512 Assessments Encounter Date Diagnosis (ICD Code) Assessment Notes Treatment Notes Treatment Clinical Notes 05/18/2024 Screening mammogram for breast cancer (ICD-10 - Z12.31) Her annual screening mammogram has been ordered. 05/18/2024 Essential hypertension (ICD-10 - I10) Her blood pressure is 129/55. No change in her regimen as necessary. I recommended weight reduction and sodium restriction. 05/18/2024 Osteoporosis (ICD-10 - M81.0) She was continued on current therapy. She is taking calcium and vitamin D. Her last bone density in my record was in 2016. A repeat is indicated. She has known osteoporosis and may be a candidate for alendronate. She will be referred back to primary care for this issue. 05/18/2024 Malignant neoplasm of lower-outer quadrant of left female breast (ICD-10 - C50.512) There is no sign of recurrent disease on today's examination. There was no sign of a new primary. Surveillance will continue. Plan Of Treatment Medication Medication Name Sig Start Date Stop Date Notes Centrum 1000 MG as directed Orally O nce a day Vitamin D-3 5000 UNIT as directed Orally Once a day amLODIPine Besylate 2.5 MG 1 tablet Orally Once a day Donepezil HCl 10 MG 1 tablet at bedtime Orally Once a day Bisoprolol-hydroCHLOROthiazi de 2.5-6.25 MG 1 tablet Orally Once a day Aspir-81 81 MG 1 tablet Orally Once a day Next Appt Details Follow Up: 6 Months, Reason: OV Provider Name:Lalito Becerra, 11/20/2025 11:00:00 AM, [address] [place] [address] [place], [place], [id number], Progress Notes * Kimber GODOYOB:1935 (88 yo F)Acc No.[id number]:05/18/2024 Progress Notes Patient: Sunni Jenny watkins Provider: Shelly Becerra MD :1935 A ge:88 Y S ex:Female Date:05/18/2024 Address:[address] [place] [address], [id number] Pcp:Todd Pitt MD Subjective: * Chief Complaints: * H istory of left breast cancerOsteoporosisHypertension * HPI: C OVID-19 Screening: She returns to the office for ongoing surveillance after a history of carcinoma left breast treated with surgery and adjuvant endocrine therapy with anastrozole. There was no sign of recurrent disease on today's examination. There was no sign of a new primary. She is up-to-date with mammography. He has had a previous carcinoma in the left breast in 1982 treated with surgery followed by radiation followed by chemotherapy. Questions H ave you experienced fever, chills, cough, sore throat, shortness of breath, difficulty breathing, muscle aches, loss of taste or smell? N o H ave you been exposed to the virus within the last 10 days? N o H ave you travelled internationally in the last 10 days? N o H ave you been exposed to COVID-19 in the past? N o * ROS: G eneral/Constitutional: pain o nly normal aches and pains. C hills d enies.?Fatigue a dmits. F ever d enies. E NT: Decreased hearing i n both ears. R espiratory: Cough d enies. C ardiovascular: Chest pain with exertion d enies. D yspnea on exertion?denies. S hortness of breath d enies. G astrointestinal: Constipation o ccasional. D ecreased appetite d enies. D iarrhea d enies. H eartburn d enies. N ausea d enies. R ectal bleeding d enies. V omiting d enies. H ematology: bruising d enies. p etechiae d enies. S wollen glands n one have been noted. G enitourinary: Frequent urination a t night. M usculoskeletal: Muscle aches d enies. P ainful joints d enies. S ciatica d enies. W eakness t hat is generalized. S kin: Itching d enies. R katie d enies. S kin lesion(s)?denies. N eurologic: Difficulty speaking d enies. D izziness d enies.?Headache d enies. L ow back pain d enies. P sychiatric: Depressed mood d enies. 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 M other: 80 yrs, Coronary artery disease. S on(s): alive. 1 sister(s) . 5 son(s) . . One of her sons of spina bifida. Her sister has a history of breast cancer. The patient has never had genomic testing. * Social History: T obacco Use: T obacco Use/Smoking P atarmand is a n onsmoker A dditional Findings: Tobacco Non-User A ggressive non-smoker S he has been to her Lynn for 60 years. They have 4 living children. One child of hydrocephalus and spina bifida. * Medications: T akingAspir-81 81 MG Tablet Delayed Release 1 tablet Orally Once a dayCentrum 1000 MG Tablet as directed Orally Once a dayVitamin D-3 5000 UNIT Tablet as directed Orally Once a dayamLODIPine Besylate 2.5 MG Tablet 1 tablet Orally Once a dayDonepezil HCl 10 MG Tablet 1 tablet at bedtime Orally Once a dayBisoprolol-hydroCHLOROthiazide 2.5-6.25 MG Tablet 1 tablet Orally Once a dayMedication List reviewed and reconciled with the patientTaking Aspir-81 81 MG Tablet Delayed Release 1 tablet Orally Once a dayTaking Centrum 1000 MG Tablet as directed Orally Once a dayTaking Vitamin D-3 5000 UNIT Tablet as directed Orally Once a dayTaking amLODIPine Besylate 2.5 MG Tablet 1 tablet Orally Once a dayTaking Donepezil HCl 10 MG Tablet 1 tablet at bedtime Orally Once a dayTaking Bisoprolol-hydroCHLOROthiazide 2.5-6.25 MG Tablet 1 tablet Orally Once a dayMedication List reviewed and reconciled with the patient * Allergies: N o Known Drug Allergyno[Allergies Verified] Objective: * Vitals: H t: 61, Wt:135, BMI:25.51, BP:129/55, HR:52, Temp:97.3, Wt-k.23. * Examination: G eneral Examination: GENERAL APPEARANCE: p taco, well nourished, well developed, in no acute distress, calm and relaxed , overweight , elderly woman. HEAD: a traumatic, normocephalic. EYES: e sanjuanita, perrla, anicteric, conjugate. EARS: n ormal. NOSE: s eptum intact. ORAL CAVITY: n ormal, unremarkable. NECK/THYROID: n o jugular venous distention, no carotid bruit, thyroid normal. LYMPH NODES: n o enlarged lymph nodes,spleen normal. SKIN: n o suspicious lesions, anicteric. HEART: n o clicks, gallops, murmurs, or rubs, regular rhythm, S1, S2 normal, no s3, or vascular bruits. LUNGS: c lear to auscultation . BREASTS: n o masses palpable bilaterally , no dimpling , no discharge , no drainage , nontender , Left breast smaller, o ld surgical scars, radiation changes left breast well-healed. ABDOMEN: b owel sounds normal, no ascites, no organomegaly, no mass , overweight. RECTAL EXAM: n ot examined. MUSCULOSKELETAL: e xtremities unremarkable, no clubbing, cyanosis or edema. PERIPHERAL PULSES: n ormal. NEUROLOGIC: a lert and oriented, cranial nerves 2-12 grossly intact, deep tendon reflexes 2+ symmetrical, motor strength normal upper and lower extremities, sensory exam intact. PSYCH: a lert, oriented. Assessment: * Assessment: 1. S creening mammogram for breast cancer - Z12.31 (Primary), Her annual screening mammogram has been ordered. 2 . E ssential hypertension - I10, Her blood pressure is 129/55. No change in her regimen as necessary. I recommended weight reduction and sodium restriction. 3 . O steoporosis - M81.0, She was continued on current therapy. She is taking calcium and vitamin D. Her last bone density in my record was in 2017. A repeat is indicated. She has known osteoporosis and may be a candidate for alendronate. She will be referred back to primary care for this issue. 4 . 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 There was no sign of a new primary. Surveillance will continue. Plan: * Treatment: * Procedure Codes: * Preventive Medicine: Counseling: C are goal follow-up plan: Counseling for abnormal BMI given Y es Above Normal BMI Follow-up D ietary management education, guidance, and counseling * Follow Up: 6 Months (Reason: OV) * Images: * Sign off status: Completed true * Provider: Shelly Becerra MD Date: 0 05/18/2024 Generated for Printi ng/Shirley/eTransmitting on: 0 06/19/2025 12:44 PM EDT History and Physical Notes * HPI (History of Present Illness) Category Sub-Category Detail Notes COVID-19 Screening Questions Have you had any new onset fever, chills, cough, congestion, sore throat, shortness of breath, muscle aches?: No Have you been exposed to the virus withi n the last 10 days?: No Have you travelled internationally in last 10 days?: No Have you been exposed to COVID-19 in the past?: No Examination Category Sub-Category Detail Notes General Examination GENERAL APPEARANCE: pleasant , well nourished, well developed, in no acute distress, calm and relaxed , overweight , elderly woman HEAD: atraumatic, normocep halic EYES: eomi, perrla, anicte marychuy, conjugate EARS: normal NOSE: septum intact NECK/THYROID: no jugular venous di stention, no carotid bruit, thyroid normal HEART: no clicks, gallops, murmurs, or rubs, regular rhythm, S1, S2 normal, no s3, or vascular bruits LUNGS: clear to auscultatio n ABDOMEN: bowel sounds normal, no ascites, no organomegaly, no mass , overweight NEUROLOGIC: alert and oriented, cranial nerves 2-12 grossly intact, deep tendon reflexes 2+ symmetrical, motor strength normal upper and lower extremities, sensory exam intact SKIN: no suspicious lesion s, anicteric PERIPHERAL PULSES: normal BREASTS: no masses palpable b ilaterally , no dimpling , no discharge , no drainage , nontender , Left breast smaller, old surgical scars, radiation changes left breast well-healed MUSCULOSKELETAL: extremities unremark able, no clubbing, cyanosis or edema LYMPH NODES: no enlarged lymph no amos,spleen normal RECTAL EXAM: not examined PSYCH: alert, oriented ORAL CAVITY: normal, unremarkable
--- OUTSIDE RECORDS SUMMARY | 2024-11-20 07:00 | XMS_ITS ---
Author Organization Lalito Becerra III, MD Address [address] [place] [address] [place] [address] Care Team Providers Care Electrician Rectifier Maintenance Name Role Phone Lalito Becerra Unavailable [phone] Allergies Allergen (clinical drug ingredient) Drug/Non Drug Allergy documented on EMR Reaction Allergy Type Onset Date Status No Known Drug Allergy Unknown Drug Allergy Active REASON FOR VISIT History of carcinoma of the left breast, Hypertension, Neutropenia, Osteoporosis Medications Medication SIG (Take, Route, Frequency, Duration) Notes Start Date End Date Status Vitamin D-3 5000 UNIT as directed Orally Once a day Active Donepezil HCl 10 MG 1 tablet at bedtime Orally Once a day Active amLODIPine Besylate 2.5 MG 1 tablet Orally Once a day Active Centrum 1000 MG as directed Orally O nce a day Active Aspir-81 81 MG 1 tablet Orally Once a day Active Bisoprolol-hydroCHLOROthia zide [...] Tobacco Non-User Aggressive non-smoker Vital Signs Temperature 97.0 degrees Fahrenheit 11/20/19 25 Blood pressure systolic 137 mm Hg 11/20/19 25 Blood pressure diastolic 61 mm Hg 025 Heart Rate 59 /min 11/20/2024 Height 61 in 11/20/2024 Weight 138 lbs 11/20/2024 BMI 26.07 kg/m2 11/20/2024 Encounters Encounter Location Date Provider Diagnosis Lalito Becerra III, MD [address] [place] [address] [address] [place] [address] 11/20/2024 Lalito Becerra Screening mammogram for breast cancer Z12.31 ; Malignant neoplasm of lower-outer quadrant of left female breast C50.512 ; Essential hypertension I10 ; Neutropenia, unspecified type D70.9 ; Sinus bradycardia R00.1 and Osteoporosis M81.0 Assessments Encounter Date Diagnosis (ICD Code) Assessment Notes Treatment Notes Treatment Clinical Notes 11/20/2024 Screening mammogram for breast cancer (ICD-10 - Z12.31) Her annual screening mammogram has been ordered. 11/20/2024 Malignant neoplasm of lower-outer quadrant of left female breast (ICD-10 - C50.512) There is no sign of recurrent disease on today's examination. There was no sign of a new primary. Surveillance will continue. 11/20/2024 Essential hypertension (ICD-10 - I10) Her blood pressure is stable. No change in her regimen as necessary. I recommended weight reduction and sodium restriction. 11/20/2024 Neutropenia, unspecified type (ICD-10 - D70.9) Comprehensive blood work including a CBC was ordered today. 11/20/2024 Sinus bradycardia (ICD-10 - R00.1) Her pulse today was normal at 62. No change in her regimen as needed. 11/20/2024 Osteoporosis (ICD-10 - M81.0) She was continued on current therapy. She is taking calcium and vitamin D. Her last bone density in my record was in 2017. A repeat is indicated. She has known osteoporosis and may be a candidate for alendronate. She will be referred back to primary care for this issue. Plan Of Treatment Medication Medication Name Sig Start Date Stop Date Notes Vitamin D-3 5000 UNIT as directed Orally Once a day Donepezil HCl 10 MG 1 tablet at bedtime Orally Once a day amLODIPine Besylate 2.5 MG 1 tablet Orally Once a day Centrum 1000 MG as directed Orally O nce a day Aspir-81 81 MG 1 tablet Orally Once a day Bisoprolol-hydroCHLOROthiazi de 2.5-6.25 MG 1 tablet Orally Once a day Next Appt Details Follow Up: 6 Months, Reason: ov no tests Provider Name:Lalito Becerra, 11/20/2025 11:00:00 AM, [address] [place] [address] [place], [address], Progress Notes * Kimber GODOYOB:1935 (89 yo F)Acc No.[id number]:11/20/2024 Progress Notes Patient: Jenny MESA Provider: Shelly Becerra MD :1935 A ge:89 Y S ex:Female Date:11/20/2024 Address:[address] [place], [place] [id number] Pcp:Todd Pitt MD Subjective: * Chief Complaints: * H istory of carcinoma of the left breastHypertensionNeutropeniaOsteoporosis * HPI: C OVID-19 Screening: She returns to the office twice a year for monitoring of a history of breast cancer. She is feeling healthy and well. She denied having any new symptoms or problems. She is conducting breast self-examination reguularly. She has no new findings. Her examination today was unremarkable. Questions H ave you had any new onset fever, chills, cough, congestion, sore throat, shortness of breath, muscle aches? N o * ROS: G eneral/Constitutional: pain o nly normal aches and pains. C hills d enies.?Fatigue a dmits. F ever d enies. E NT: Decreased hearing d enies. R espiratory: Cough d enies. C ardiovascular: [...] enies. S ciatica d enies. W eakness d enies. S kin: Itching d enies. R katie [...] T obacco Use: T obacco Use/Smoking P atient is a n onsmoker A dditional Findings: Tobacco Non-User A ggressive non-smoker S he has been to her Lynn for 60 years. They have 4 living children. One child of hydrocephalus and spina bifida. * Medications: T akingAspir-81 81 MG Tablet Delayed Release 1 tablet Orally Once a day Centrum 1000 MG Tablet as directed Orally Once a day Vitamin D-3 5000 UNIT Tablet as directed Orally Once a day amLODIPine Besylate 2.5 MG Tablet 1 tablet Orally Once a day Donepezil HCl 10 MG Tablet 1 tablet at bedtime Orally Once a day Bisoprolol- hydroCHLOROthiazide 2.5-6.25 MG Tablet 1 tablet Orally Once a day Medication List reviewed and reconciled with the patientTaking Aspir-81 81 MG Tablet Delayed Release 1 tablet Orally Once a day Taking Centrum 1000 MG Tablet as directed Orally Once a day Taking Vitamin D-3 5000 UNIT Tablet as directed Orally Once a day Taking amLODIPine Besylate 2.5 MG Tablet 1 tablet Orally Once a day Taking Donepezil HCl 10 MG Tablet 1 tablet at bedtime Orally Once a day Taking Bisoprolol-hydroCHLOROthiazide 2.5-6.25 MG Tablet 1 tablet Orally Once a day Medication List reviewed and reconciled with the patient * Allergies: N o Known Drug Allergyno[Allergies Verified] Objective: * Vitals: H t: 61, Wt:138, BMI:26.07, BP:137/61, HR:59, Temp:97.0, Wt-k.6. * Examination: G eneral Examination: GENERAL APPEARANCE: p taco, well nourished, well developed, in no acute distress, calm and relaxed, overweight, elderly woman, overweight, elderly woman.? HEAD: a traumatic, normocephalic. EYES: e sanjuanita, [...] LUNGS: c lear to auscultation . BREASTS: no masses palpable bilaterally, Left lumpectomy scar well-healed, radiation changes, right breast unremarkable. ABDOMEN: b owel sounds normal, no ascites, no organomegaly, no mass, overweight. RECTAL EXAM: n ot examined. MUSCULOSKELETAL: e xtremities unremarkable, no clubbing, cyanosis or edema. PERIPHERAL PULSES: n ormal. NEUROLOGIC: a lert and oriented, cranial nerves 2-12 grossly intact, deep tendon reflexes 2+ symmetrical, motor strength normal upper and lower extremities, sensory exam intact. PSYCH: a lert, oriented. Assessment: * Assessment: 1. M alignant neoplasm of lower-outer quadrant of left female breast - C50.512 (Primary) ? N otes :There is no sign of recurrent disease on today's examination. There was no sign of a new primary. Surveillance will continue. 2 . S creening mammogram for breast cancer - Z12.31 N otes :Her annual screening mammogram has been ordered. 3 . E ssential hypertension - I10 N otes :Her blood pressure is stable. No change in her regimen as necessary. I recommended weight reduction and sodium restriction. 4 . N eutropenia, unspecified type - D70.9 N otes :Comprehensive blood work including a CBC was ordered today. 5 . S inus bradycardia - R00.1 N otes :Her pulse today was normal at 62. No change in her regimen as needed. 6 . O steoporosis - M81.0 N otes :She was continued on current therapy. She is taking calcium and vitamin D. Her last bone density in my record was in 2017. A repeat is indicated. She has known osteoporosis and may be a candidate for alendronate. She will be referred back to primary care for this issue. Plan: * Treatment: * Procedure Codes: * Preventive Medicine: Counseling: C are goal follow-up plan: Counseling for abnormal BMI given Y es Above Normal BMI Follow-up D ietary management education, guidance, and counseling * Follow Up: 6 Months (Reason: ov no tests) * Images: * Sign off status: Completed true * Provider: Shelly Becerra MD Date: 0 11/20/2024 Generated for Yovani roman/Shirley/Shermanitting on: 0 06/19/2025 12:44 PM EDT History and Physical Notes * HPI (History of Present Illness) Category Sub-Category Detail Notes COVID-19 Screening Questions Have you had any new onset fever, chills, cough, congestion, sore throat, shortness of breath, muscle aches?: No Examination Category Sub-Category Detail Notes General Examination GENERAL APPEARANCE: pleasant , well nourished, well developed, in no acute distress, calm and relaxed, overweight, elderly woman, overweight, elderly woman HEAD: atraumatic, normocep halic EYES: eomi, perrla, anicte marychuy, conjugate EARS: normal NOSE: septum intact NECK/THYROID: no jugular venous di stention, no carotid bruit, thyroid normal HEART: no clicks, gallops, murmurs, or rubs, regular rhythm, S1, S2 normal, no s3, or vascular bruits LUNGS: clear to auscultatio n ABDOMEN: bowel sounds normal, no ascites, no organomegaly, no mass, overweight NEUROLOGIC: alert and oriented, cranial nerves 2-12 grossly intact, deep tendon reflexes 2+ symmetrical, motor strength normal upper and lower extremities, sensory exam intact SKIN: no suspicious lesion s, anicteric PERIPHERAL PULSES: normal BREASTS: no masses palpable b ilaterally, Left lumpectomy scar well-healed, radiation changes, right breast unremarkable MUSCULOSKELETAL: extremities unremark able, no clubbing, cyanosis or edema LYMPH NODES: no enlarged lymph no amos,spleen normal RECTAL EXAM: not examined PSYCH: alert, oriented ORAL CAVITY: normal, unremarkable
--- OUTSIDE RECORDS SUMMARY | 2025-05-20 07:00 | XMS_ITS ---
Author Organization Lalito Becerra III, MD Address [address] [place] [address] [place] [address] Care Team Providers Care Blister Rust Eradicator Name Role Phone Lalito Becerra Unavailable [phone] Allergies Allergen (clinical drug ingredient) Drug/Non Drug Allergy documented on EMR Reaction Allergy Type Onset Date Status No Known Drug Allergy Unknown Drug Allergy Active REASON FOR VISIT Carcinoma of the left breast, Dementia, Hypertension, Osteoporosis Medications Medication SIG (Take, Route, Frequency, Duration) Notes Start Date End Date Status Bisoprolol-hydroCHLOROthia zide 2.5-6.25 MG 1 tablet Orally Once a day Active Vitamin D-3 5000 UNIT as directed Orally Once a day Active Donepezil HCl 10 MG 1 tablet at bedtime Orally Once a day Active amLODIPine Besylate 2.5 MG 1 tablet Orally Once a day Active Aspir-81 81 MG 1 tablet Orally Once a day Active Centrum 1000 MG as directed Orally O nce a day Active Social History Tobacco Use: Social History Observation Description Date Details (start date - stop date) Never Smoker NA - NA Sex Assigned At : Social History Observation Description Sex Assigned At Female Tobacco Use/Smoking Question Answer Notes Patient is a nonsmoker Additional Findings: Tobacco Non-User Aggressive non-smoker Problems Problem Type SNOMED Code ICD Code Onset Dates Problem Status W/U Status Risk Notes Problem 381053156 Overweight (E66.3) Active confirmed She is very slightly overweight. I recommended stabilizing her weight is a current level. We discussed diet and nutrition. Vital Signs Temperature 98.4 degrees Fahrenheit 05/20/20 25 Blood pressure systolic 134 mm Hg 05/20/20 25 Blood pressure diastolic 52 mm Hg 025 Heart Rate 58 /min 05/20/2025 Height 61 in 05/20/2025 Weight 136 lbs 05/20/2025 BMI 25.69 kg/m2 05/20/2025 Encounters Encounter Location Date Provider Diagnosis Lalito Becerra III, MD [address] [place] [address] [address] [place], [place] [address] 05/20/2025 Lalito Becerra Screening mammogram for breast cancer Z12.31 ; Malignant neoplasm of lower-outer quadrant of left female breast C50.512 ; Essential hypertension I10 ; Osteoporosis M81.0 and Overweight E66.3 Assessments Encounter Date Diagnosis (ICD Code) Assessment Notes Treatment Notes Treatment Clinical Notes 05/20/2025 Screening mammogram for breast cancer (ICD-10 - Z12.31) Her annual screening mammogram has been ordered. 05/20/2025 Malignant neoplasm of lower-outer quadrant of left female breast (ICD-10 - C50.512) There is no sign of recurrent disease on today's examination. There was no sign of a new primary. Surveillance will continue. 05/20/2025 Essential hypertension (ICD-10 - I10) Her blood pressure is stable. No change in her regimen as necessary. I recommended weight reduction and sodium restriction. 05/20/2025 Osteoporosis (ICD-10 - M81.0) She was continued on current therapy. She is taking calcium and vitamin D. Her last bone density in my record was in 2017. A repeat is indicated. She has known osteoporosis and may be a candidate for alendronate. She will be referred back to primary care for this issue. 05/20/2025 Overweight (ICD-10 - E66.3) She is very slightly overweight. I recommended stabilizing her weight is a current level. We discussed diet and nutrition. Plan Of Treatment Medication Medication Name Sig Start Date Stop Date Notes Bisoprolol-hydroCHLOROthiazi de 2.5-6.25 MG 1 tablet Orally Once a day Vitamin D-3 5000 UNIT as directed Orally Once a day Donepezil HCl 10 MG 1 tablet at bedtime Orally Once a day amLODIPine Besylate 2.5 MG 1 tablet Orally Once a day Aspir-81 81 MG 1 tablet Orally Once a day Centrum 1000 MG as directed Orally O nce a day Next Appt Details Follow Up: 6 Months, Reason: OV Provider Name:Lalito Becerra, 11/20/2025 11:00:00 AM, [address] [place] [address] [address], [place], [address], Progress Notes * Kimber GODOYOB:1935 (89 yo F)Acc No.[id number]:05/20/2025 Progress Notes Patient: Jenny MESA Provider: Shelly Becerra MD :1935 A ge:89 Y S ex:Female Date:05/20/2025 Address:[address] [place], [place] [id number] Subjective: * Chief Complaints: * C arcinoma of the left breastDementiaHypertensionOsteoporosis * HPI: C OVID-19 Screening: She returns to the office after 6 months for surveillance of a history of carcinoma of left breast.? S guanako her last visit she has been healthy and well. Her significant memory defects are unchanged. She continues living at home, cared for by her and son. She has no new complaints. She says she is feeling well. She was well dressed and well groomed today.Her bloood pressure was 132/52.She is still bradycardic with a pulse of 58. No change in her regimen was necessary today. Questions H ave you had any new onset fever, chills, cough, congestion, sore throat, shortness of breath, muscle aches? N o * ROS: G eneral/Constitutional: pain o nly normal aches and pains. C hills d enies.?Fatigue a dmits. F ever d enies. E NT: Decreased hearing m ild. R espiratory: Cough d enies. C ardiovascular: [...] have been noted. G enitourinary: Frequent urination d enies. M usculoskeletal: Muscle aches d enies. P [...] T obacco Use: T obacco Use/Smoking P domo is a n onsmoker A dditional Findings: [...] Verified] Objective: * Vitals: H t: 61, Wt:136, BMI:25.69, BP:134/52, HR:58, Temp:98.4, Wt-k.69. * Examination: G eneral Examination: GENERAL APPEARANCE: p leasant, well nourished, well developed, in no acute distress, calm and relaxed: overweight: elderly woman. HEAD: a traumatic, normocephalic. EYES: e sanjuanita, perrla, anicteric, conjugate. EARS: n ormal. NOSE: s eptum intact. ORAL CAVITY: n ormal, unremarkable. NECK/THYROID: n o jugular venous distention, no carotid bruit, thyroid normal. LYMPH NODES: n o enlarged lymph nodes,spleen normal. SKIN: n o suspicious lesions, anicteric. HEART: n o clicks, gallops, murmurs, or rubs, regular slow rhythm, S1, S2 normal, no s3, or vascular bruits. LUNGS: c lear to auscultation . BREASTS: n o masses palpable bilaterally, Healed scar, left breast,: no dimpling: no discharge: no drainage: nontender. ABDOMEN: b owel sounds normal, no ascites, no organomegaly, no mass: overweight. RECTAL EXAM: n ot examined. MUSCULOSKELETAL: e xtremities unremarkable, no clubbing, cyanosis or edema. PERIPHERAL PULSES: n ormal. NEUROLOGIC: a lert and oriented to person and place, cranial nerves 2-12 grossly intact, deep tendon reflexes 2+ symmetrical, motor strength normal upper and lower extremities, sensory exam intact. PSYCH: a lert, orientedTo person and place. ? Assessment: * Assessment: 1. M alignant neoplasm [...] weight reduction and sodium restriction. 4 . O steoporosis - M81.0 N otes :She was continued on current therapy. She is taking calcium and vitamin D. Her last bone density in my record was in 2017. A repeat is indicated. She has known osteoporosis and may be a candidate for alendronate. She will be referred back to primary care for this issue. 5 . O verweight - E66.3 N otes :She is very slightly overweight. I recommended stabilizing her weight is a current level. We discussed diet and nutrition. Plan: * Treatment: * Procedure Codes: * Preventive Medicine: Counseling: C are goal follow-up plan: Counseling for abnormal BMI given Y es Above Normal BMI Follow-up D ietary management education, guidance, and counseling, Dietary needs education * Follow Up: 6 Months (Reason: OV) * Images: * Sign off status: Completed true * Provider: Shelly Becerra MD Date: 0 05/20/2025 Generated for Yovani roman/Shirley/eTransmitting on: 0 06/19/2025 12:44 PM EDT History and Physical Notes * HPI (History of Present Illness) Category Sub-Category Detail Notes COVID-19 Screening Questions Have you had any new onset fever, chills, cough, congestion, sore throat, shortness of breath, muscle aches?: No Examination Category Sub-Category Detail Notes General Examination GENERAL APPEARANCE: pleasant , well nourished, well developed, in no acute distress, calm and relaxed: overweight: elderly woman HEAD: atraumatic, normocep halic EYES: eomi, perrla, anicte marychuy, conjugate EARS: normal NOSE: septum intact NECK/THYROID: no jugular venous di stention, no carotid bruit, thyroid normal HEART: no clicks, gallops, murmurs, or rubs, regular slow rhythm, S1, S2 normal, no s3, or vascular bruits LUNGS: clear to auscultatio n ABDOMEN: bowel sounds normal, no ascites, no organomegaly, no mass: overweight NEUROLOGIC: alert and oriented t o person and place, cranial nerves 2-12 grossly intact, deep tendon reflexes 2+ symmetrical, motor strength normal upper and lower extremities, sensory exam intact SKIN: no suspicious lesion s, anicteric PERIPHERAL PULSES: normal BREASTS: no masses palpable b ilaterally, Healed scar, left breast,: no dimpling: no discharge: no drainage: nontender MUSCULOSKELETAL: extremities unremark able, no clubbing, cyanosis or edema LYMPH NODES: no enlarged lymph no amos,spleen normal RECTAL EXAM: not examined PSYCH: alert, orientedTo pe rson and place ORAL CAVITY: normal, unremarkable
--- NOTE | 2025-06-19 10:31 | A.OFFPC_ITS ---
Vital Signs 06/19/25 10:41 Height 5 ft 1 in Weight 61.689 kg BMI 25.7 BP 110/50 L Respiration 14 Pulse 52 Pulse Source Pulse Oximeter Temp 97.3 F Temp Source Temporal Artery Scan Pulse Oximetry (%) 98 Oxygen Delivery Method Room Air Intake Visit Reasons: 3 MO F/UP - GUS PT Embedded Software Design Engineer Required: No Accompanied by: Spouse Allergies No Known Allergies Allergy (Verified 06/19/25 10:38) Tobacco use date assessed: 06/19/25 Fall risk assessment: No Falls in past year Last assessed Fall Risk: 06/19/25 Dental Screening Dental Screen Date: 06/19/25 Did you have a dental visit in the last 12 months?: Yes Did you have a dental problem in the last 6 months where you did not have access to dental care?: No Was dental information given to patient?: No HPI HPI Comments History of Present Illness Details 81-year-old female with history of hyper tension, hypercholesteremia, venous insufficiency, anemia of chronic disease, PVCs, left breast cancer, osteoporosis, vascular dementia presenting to the office today accompanied by her and son for management of chronic conditions and to establish care. She has a previous Dr. Pitt patient, last seen 03/2025 L breast cancer-s/p lumpectomy and radiation. Initially 1986 with recurrence in 2012. Previously following with [facility], now being followed annually with Dr. Becerra HTN- on amdlopidine 5mg daily BP 110/50 in the office Vascular dementia- on donepazil. Currently lives at home with her and is independent with ADLs. Not driving. Not currently following with Neurology Vascular dementia- not driving. More fatigued. Concerns: Fatigue- ongoing about 1 year. Sleeps about 8 hours nightly. Feels rested. She does does to the gym several days a week which does fatigue her or other activities such as shopping will tire her. Her son reports that he has noted her veering to the right when ambulating. There have been no falls. She denies any lightheadedness or vertigo ROS: see hpi EXAM: Constitutional - Awake and Alert, No apparent distress Eyes - PERRL Cardiovascular - S1S2, RRR, No edema Respiratory - Normal lung expansion, Normal respiratory effort, No respiratory distress, CTA bilaterally Extremities - no calf tenderness bilaterally, no swelling Skin - Warm/Dry Neurological - Alert & oriented x3. Horizontal nystagmus, otherwise CI II-XII in tact. Negative romberg. Slow Ataxic gait noted. Slow speech Psychological - Appropriate affect [facility] Medical History (Updated 06/19/25 @ 11:18 by ARTIE Cunningham) Osteoporosis PVCs (premature ventricular contractions) Hypercholesterolemia Venous insufficiency Breast cancer, left Vascular dementia Cerebellar ataxia Fatigue Social History Housing: House Patient Tobacco Use Status: Never used Tobacco e-Cigarette/Vaping Use: Never Used service: No Current occupational status: retired Cognitive needs: No Hearing needs: No Vision needs: Yes (Rx glasses) Questionnaire PHQ-9 Over the last 2 weeks, how often have you been bothered by any of the following problems? 1. Little interest or pleasure in doing things: several days 2. Feeling down, depressed, or hopeless: not at all 3. Trouble falling or staying asleep, or sleeping too much: not at all 4. Feeling tired or having little energy: nearly every day 5. Poor appetite or overeating: not at all 6. Feeling bad about yourself - or that you are a failure or have let yourself or your family down: not at all 7. Trouble concentrating on things, such as reading the newspaper or watching television: not at all 8. Moving or speaking so slowly that other people could have noticed. Or the opposite - being so fidgety or restless that you have been moving around a lot more than usual: not at all 9. Thoughts that you would be better off or of hurting yourself in some way: not at all Total score: 4 Depression Screening Interpretation: Negative Depression Screening Done: Yes 54875 - PHQ-9 Billing: Yes Source: Developed by Drs. Lalito Castillo, Winsome Jerome, Davi Ugalde and colleagues, with an educational deedee from [employer]. Physical exam (Primary Care) Vital Signs: Last Vital Signs Temp 97.3 F 06/19/25 10:41 Pulse 52 06/19/25 10:41 Resp 14 06/19/25 10:41 BP 110/50 L 06/19/25 10:41 Pulse Ox 98 06/19/25 10:41 Oxygen Delivery Method Room Air 06/19/25 10:41 BMI result Body Mass Index 25.7 Tobacco/Smoking Status: Tobacco use Status Tobacco use date assessed 06/19/25 06/19/25 10:44 Patient Tobacco Use Status Never used Tobacco 06/19/25 10:44 e-Cigarette/Vaping Use Never Used 06/19/25 10:44 PHQ-9: PHQ-9 Score PHQ-9: Total score 4 06/19/25 11:09 Depression Screening Interpretation: Negative Coding Level of Care Code New Pt Level 4 (02103) Complex EM visit Add On G2211 Diagnoses 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 Referred to neurology for further evaluation and management. (2) Vascular dementia: Code(s): F01.50 - Vascular dementia, unspecified severity, without behavioral disturbance, psychotic disturbance, mood disturbance, and anxiety Category: Medical Plan: Continue donepezil. Referred to Neurology as above. No behavioral disturbance, can continue quetiapine (3) Breast cancer, left: Code(s): C50.912 - Malignant neoplasm of unspecified site of left female breast Category: Medical Plan: In remission. Continue following annually with Oncology for surveillance. (4) Hypercholesterolemia: Code(s): E78.00 - Pure hypercholesterolemia, unspecified Category: Medical Plan: Lipid panel ordered. (5) Fatigue: Code(s): R53.83 - Other fatigue Category: Medical Plan: Labs ordered for further assessment. See below (6) Osteoporosis: Code(s): M81.0 - Age-related osteoporosis without current pathological fracture Category: Medical Plan: Check vitamin-D level. Recommend calcium and vitamin-D supplement as well as weight-bearing exercise which she should continue with at the gym Plan Follow-up in the office in 6 months. Orders: Orders Basic Metabolic Panel Today R53.83 - Other fatigue Lipid Panel Today R53.83 - Other fatigue Liver Panel Today R53.83 - Other fatigue Vitamin B12 Today R53.83 - Other fatigue Complete Blood Count Auto Diff Today R53.83 - Other fatigue IRON PROFILE Today R53.83 - Other fatigue TSH reflex Free T4 Today R53.83 - Other fatigue Vitamin D 25-OH Total Today R53.83 - Other fatigue
[2025-06-19 10:41] VITALS: BP 110/50; PULSE 52; RESP 14; TEMP 36.3; O2SAT 98; BMI 25.7
--- OUTSIDE RECORDS SUMMARY | 2025-06-19 12:44 | XMS_ITS | Patient Health Record ---
Author Organization Lalito Becerra III, MD Address [address] [place] [address] [place] [address] Care Team Providers Care Paleontology Teacher Name Role Phone Lalito Becerra [facility] [phone] Allergies Allergen (clinical drug ingredient) Drug/Non Drug [...] directed Orally O nce a day Active Donepezil HCl 10 MG [...] Problem Status W/U Status Risk Notes Problem 405497112 Overweight (E66.3) Active confirmed She is very slightly overweight. I recommended stabilizing her weight is a current level. We discussed diet and nutrition. Problem 025442369 Anemia (D64.9) Active confirmed I have ordered comprehensive blood work to be done before her next visit. Problem 276401378 Malignant neopla sm of lower-outer quadrant of left female breast (C50.512) Active confirmed There is no sign of recurrent disease on today's examination. There was no sign of a new primary. Surveillance will continue. Problem 73629292 Essential hypertension (I10) Active confirmed Her blood pressure is stable. No change in her regimen as necessary. I recommended weight reduction and sodium restriction. Problem 34890520 Sinus bradycardi a (R00.1) Active confirmed Her pulse today was normal at 62. No change in her regimen as needed. Problem 30070943 Osteoporosis (M81.0) Active confirmed She was continued on current therapy. She is taking calcium and vitamin D. Her last bone density in my record was in 2017. A repeat is indicated. She has known osteoporosis and may be a candidate for alendronate. She will be referred back to primary care for this issue. Problem 322111531 Hyposmolality and/or hyponatremia (E87.1) Active confirmed Problem 744643260 Cataract (H26.9) Active confirmed Problem 722448147 Neutropenia, unspecified type (D70.9) Active confirmed Comprehensive blood work including a CBC was ordered today. Problem 717521890 First degree atrioventricular block (I44.0) Active confirmed Her heart rate was normal today. She has had no syncope. Agitation will continue. Vital Signs Heart Rate 58 /min 05/20/2025 Temperature 98.4 degrees Fahrenheit 05/20/2025 Blood pressure diastolic 52 mm Hg 05/20/2025 Height 61 in 05/20/2025 Blood pressure systolic 134 mm Hg 05/20/2025 Weight 136 lbs 05/20/2025 BMI 25.69 kg/m2 05/20/2025 Encounters Encounter Location Date Provider Diagnosis Lalito Becerra III, MD [address] [place] [address] [address] [place], [place] [address] 11/20/2024 Lalito Becerra Screening mammogram for breast cancer Z12.31 ; Malignant neoplasm of lower-outer quadrant of left female breast C50.512 ; Essential hypertension I10 ; Neutropenia, unspecified type D70.9 ; Sinus bradycardia R00.1 and Osteoporosis M81.0 Lalito Becerra III, MD [address] [place] [address] [place] [address] 05/20/2025 Lalito Becerra Screening mammogram for breast cancer Z12.31 ; Malignant neoplasm of lower-outer quadrant of left female breast C50.512 ; Essential hypertension I10 ; Osteoporosis M81.0 and Overweight E66.3 Assessments Encounter Date Diagnosis (ICD Code) Assessment Notes Treatment Notes Treatment Clinical Notes 11/20/2024 Malignant neoplasm of lower-outer quadrant of [...] a new primary. Surveillance will continue. 05/20/2025 Screening mammogram for breast cancer (ICD-10 - Z12.31) Her annual screening mammogram has been ordered. 11/20/2024 Essential hypertension (ICD-10 - I10) Her blood pressure is stable. No change in her regimen as necessary. I recommended weight reduction and sodium restriction. 05/20/2025 Essential hypertension (ICD-10 - I10) Her blood pressure is stable. No change in her regimen as necessary. I recommended weight reduction and sodium restriction. 11/20/2024 Neutropenia, unspecified type (ICD-10 - D70.9) Comprehensive blood work including a CBC was ordered today. 05/20/2025 Osteoporosis (ICD-10 - M81.0) She was continued on current therapy. She is taking calcium and vitamin D. Her last bone density in my record was in 2017. A repeat is indicated. She has known osteoporosis and may be a candidate for alendronate. She will be referred back to primary care for this issue. 11/20/2024 Sinus bradycardia (ICD-10 - R00.1) Her pulse today was normal at 62. No change in her regimen as needed. 05/20/2025 Overweight (ICD-10 - E66.3) She is very slightly overweight. I recommended stabilizing her weight is a current level. We discussed diet and nutrition. 11/20/2024 Osteoporosis (ICD-10 - M81.0) She was [...] BILATERAL DIAGNO 09/08 MAMMOGRAM DIGITAL BILATERAL SCREEN 05/13 MAMMOGRAM DIGITAL BILATERAL SCREEN 10/25 MAMMOGRAM DIGITAL BILATERAL SCREEN 05/08 MAMMOGRAM DIGITAL BILATERAL SCREEN 07/29 Next Appt Details Provider Name:Lalito Becerra, 11/20/2025 11:00:00 AM, [address] [place] [address] [address] [facility], [place], [address], Insurance Providers Payer Name Payer Address Payer Phone Subscriber Number Group Number Insured Name Patient Relationship to Insured Coverage Start Date Coverage End Date MEDICARE NGS [address] [place] [phone] [id number] Jenny Godoy Self - patient is the insured FOR LIFE [address] [place] [phone] [id number] Jenny Godoy Self - patient is the insured Medical (General) History Surgical History Surgery Date(Month/Year) 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
== END 2025-06-19 11:18 | disposition home or self-care (01) ==
LOC: HO.HMCHD 10:28
PROVIDERS: PCP Family Medicine; Visit Provider Physician Assistant
DX: G11.9 Hereditary ataxia, unspecified (principal); F01.50 Vascular dementia, unspecified severity, without behavioral disturbance, psychotic disturbance, mood disturbance, and anxiety; C50.912 Malignant neoplasm of unspecified site of left female breast; E78.00 Pure hypercholesterolemia, unspecified; R53.83 Other fatigue; M81.0 Age-related osteoporosis without current pathological fracture

== ENCOUNTER → 2025-06-19 10:28 | Outpatient (BNVA) | payer MEDICARE, OTHER, SELFPAY | PROVIDERS: PCP Family Medicine; Visit Provider Physician Assistant | DX: G11.9 Hereditary ataxia, unspecified (principal); F01.50 Vascular dementia, unspecified severity, without behavioral disturbance, psychotic disturbance, mood disturbance, and anxiety; C50.912 Malignant neoplasm of unspecified site of left female breast; E78.00 Pure hypercholesterolemia, unspecified; R53.83 Other fatigue; M81.0 Age-related osteoporosis without current pathological fracture; Z13.31 Encounter for screening for depression; Z92.3 Personal history of irradiation | CPT/HCPCS: 96127; 99202 ==

== ENCOUNTER 2025-06-19 11:24 | Outpatient (REF) | payer MEDICARE, OTHER, SELFPAY ==
[2025-06-19 13:08] LABS: MANUAL DIFF FLAG NO
[2025-06-19 13:14] LABS: Hematocrit 32.8 % (37.0-47.0); Hemoglobin 11.9 g/dl (12.0-16.0); Imm Gran Abs Auto 0.01 X10*3/uL (0.00-0.03); Imm Gran Pct Auto 0.2 % (0.0-0.4); Lymphocytes Absolute Auto 1.8 X10*3/uL (1.2-4.9); Mean Corpuscular HGB Conc 36.3 g/dl (31.0-35.0); Mean Corpuscular Hemoglobin 33.8 pg (27.0-33.0); Mean Corpuscular Volume 93.2 fL (80.0-98.0); NRBC Abs Auto 0.000 X10*3/uL (0.0-0.012); NRBC Pct Auto 0.0 /100WBC (0.0-0.2); Platelet Count 247 X10*3/uL (160-400); Red Blood Count 3.52 X10*6/uL (4.20-5.50); White Blood Count 5.2 X10*3/uL (4.8-10.8)
[2025-06-19 13:51] LABS: Alanine Aminotransferase 38 U/L (0-31); Albumin Level 4.7 g/dL (3.5-5.0); Alkaline Phosphatase 60 U/L (39-117); Anion Gap 13 (12-20); Aspartate Amino Transferase 25 U/L (5-31); Blood Urea Nitrogen 20 mg/dL (9-16); Calcium 9.8 mg/dL (8.4-10.2); Carbon Dioxide 28 mmol/L (22-29); Chloride 100 mmol/L (96-108); Cholesterol 213 mg/dL (<200); Estimated Glomerular Filt Rate 54; HDL Cholesterol 46 mg/dL (>40); Iron 98 mcg/dL (30-160); Percent Iron Saturation 33 % (15-50); Potassium 4.3 mmol/L (3.3-5.1); Sodium 137 mmol/L (135-145); Total Iron Binding Capacity 301 mcg/dL (228-428); Total Protein 7.9 g/dL (6.5-8.0); Triglycerides 286 mg/dL (<150); Unsaturated Iron Binding 203 ug/dL
[2025-06-19 13:53] LABS: Vitamin B12 686 pg/mL (200-900)
== END 2025-06-19 11:25 | disposition home or self-care (01) ==
LOC: HO.10HDL 11:24
PROVIDERS: Visit Provider Physician Assistant
DX: Z13.6 Encounter for screening for cardiovascular disorders (principal); R53.83 Other fatigue
CPT/HCPCS: 36415; 80048; 80061; 80076; 82306; 82607; 83540; 84443; 85025